=== PATIENT | male | born 2000 | race Caucasian/White ===

== ENCOUNTER 2025-04-03 14:11 | Emergency (ER) | payer SELFPAY | END 2025-04-03 19:47 | disposition home or self-care (01) | LOC: MADERS 14:11 | DX: H10.9 Unspecified conjunctivitis (principal); F17.290 Nicotine dependence, other tobacco product, uncomplicated | CPT/HCPCS: 99282 ==

== ENCOUNTER 2025-04-11 17:22 | Emergency (ER) | payer SELFPAY | END 2025-04-11 18:58 | disposition home or self-care (01) | LOC: MADERS 17:22 | DX: H10.33 Unspecified acute conjunctivitis, bilateral (principal); J01.00 Acute maxillary sinusitis, unspecified; F17.290 Nicotine dependence, other tobacco product, uncomplicated | CPT/HCPCS: 99282 ==

== ENCOUNTER 2025-04-17 21:08 | Emergency (ER) | payer SELFPAY | END 2025-04-17 22:02 | disposition home or self-care (01) | LOC: MADERS 21:08 | DX: L50.9 Urticaria, unspecified (principal); F17.290 Nicotine dependence, other tobacco product, uncomplicated | CPT/HCPCS: 99282 ==